=== PATIENT | female | born 1955 | race Caucasian/White ===

== ENCOUNTER 2017-06-24 12:37 | Emergency (ER) | payer OTHER ==
[2017-06-24 12:49] VITALS: RESP 16; TEMP 98.4
--- NOTE | 2017-06-24 14:40 | EDPHY ---
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 and fell into a railing hitting her left forehead. No loss of consciousness and no seizure activity. Not anticoagulated. She has a "tad" of a headache and maybe a little bit of blurry vision trying to read her phone while she is scanning for hot[place]ircraft for an upcoming trip to [facility]. Patient has no nausea or vomiting. No weakness or numbness in extremities. No neck pain. REVIEW OF SYSTEMS: Eye: HPI ENT: no sore throat Cardiac: no chest pain or syncope Pulmonary: no cough or SOB Abdomen: no vomiting, diarrhea, abdominal pain Musculoskeletal: no back pain Skin: no rash Neuro: HPI Constitutional: no fever : no urinary symptoms A comprehensive 10 point review of systems is otherwise negative aside from elements mentioned in the history of present illness. PAST MEDICAL HISTORY: Includes hypertension and depression, tonsillectomy Social history:no alcohol, General Appearance: Alert and conversant, cooperative. Eyes: No scleral icterus. Extraocular motion intact, no diplopia ENT, Mouth: Normal mucous membranes. No tongue laceration or abrasion, no hemotympanum, no raccoon eyes or mastoid bruising. Left forehead 3 cm hematoma. Respiratory: Normal respiratory effort, breath sounds equal, lungs are clear to auscultation. Cardiovascular: Regular rate and rhythm. Gastrointestinal: Abdomen is soft and non tender. Neurological: Alert and oriented x3. Normally conversant. Face symmetric, normal movement and sensation in all extremities. Normal [id number] bilaterally and no pronator drift. Normal heel to rutledge. Skin: Warm and dry, no rashes. Musculoskeletal: No peripheral edema and no joint swelling. Psychiatric: Not agitated. Emergency Department course/MDM: Clearly not syncope by history. Does not have red flags to suggest she has high risk for intracranial hemorrhage, subdural or epidural, or skull fracture. Possible concussion with blurry vision. Precautions given and follow-up. Smoking Status: Never smoked Constitutional: Initial Vital Signs Temperature (C) 36.9 C 06/24/17 12:44 Heart Rate 69 06/24/17 12:44 Respiratory Rate 16 06/24/17 12:44 Blood Pressure 124/79 H 06/24/17 12:44 O2 Sat (%) 97 06/24/17 12:44 O2 Delivery Mode Room Air Allergies/Adverse Reactions: No Known Allergies Allergy (Verified 06/24/17 12:49) Home Medications: Medication Instructions Recorded Jinteli 1 mg-5 Mcg Tablet 06/24/17 Zoloft 50mg (*) 06/24/17 MDM/Departure - MDM Differential Diagnosis: Differential diagnosis considered for head injury including but not limited to concussion, skull fracture, intraparenchymal contusion, subarachnoid, subdural and epidural hematoma. - Depart Disposition: Home, Routine, Self-Care Clinical Impression: Head injury Qualifiers: Encounter type: initial encounter Qualified Code(s): S09.90XA - Unspecified injury of head, initial encounter Condition: Good Instructions: Concussion (ED), Head Injury (ED) Additional Instructions: Please avoid activities which might result in recurrent head trauma until you are asymptomatic and approved for full activity by follow-up physician. You been referred to the Internal Medicine or neurologist physician on-call. Referrals: Ameya Longo DO [Doctor of Osteopathy] - As per Instructions Carlos Coates MD [Medical Doctor] - As per Instructions Priti Elder MD [Medical Doctor] - As per Instructions
[2017-06-24 15:00] VITALS: BP 131/71; PULSE 65; O2SAT 98
== END 2017-06-24 15:00 | disposition home or self-care (01) ==
DX: S09.90XA Unspecified injury of head, initial encounter (principal); I10 Essential (primary) hypertension; W01.198A Fall on same level from slipping, tripping and stumbling with subsequent striking against other object, initial encounter; Y92.219 Unspecified school as the place of occurrence of the external cause; Y99.0 Civilian activity done for income or pay; Y93.89 Activity, other specified

== ENCOUNTER → 2018-03-11 | Outpatient (CLI) | payer OTHER | LOC: CIMAGING 08:27 | PROVIDERS: ATTEND Internal Medicine | DX: Z12.31 Encounter for screening mammogram for malignant neoplasm of breast (principal) ==

== ENCOUNTER → 2018-08-17 | Outpatient (CLI) | payer OTHER | LOC: BRMIMAGING 11:11 | PROVIDERS: ATTEND Internal Medicine | DX: Z13.820 Encounter for screening for osteoporosis (principal); M85.89 Other specified disorders of bone density and structure, multiple sites; E21.0 Primary hyperparathyroidism; Z78.0 Asymptomatic menopausal state ==

== ENCOUNTER → 2019-03-13 | Outpatient (CLI) | payer OTHER | LOC: CIMAGING 07:04 | PROVIDERS: ATTEND Internal Medicine | DX: Z12.31 Encounter for screening mammogram for malignant neoplasm of breast (principal) ==